=== PATIENT | female | born 1995 | race Caucasian/White ===

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

== ENCOUNTER 2017-04-14 20:50 | Emergency (ER) | payer SELFPAY ==
[~2017-04-14] VITALS: Ht 162.6 cm; Wt 71.8 kg
[~2017-04-14 20:50] MED LIST changes: +KEFLEX500 M1 PO; +PYRIDIUM200 MG PO
[2017-04-14 22:08] LABS: URINE BILIRUBIN - DIPSTICK NEGATIVE (NEGATIVE); URINE BLOOD DIPSTICK TRACE-INTACT (NEGATIVE); URINE COLOR YELLOW; URINE GLUCOSE - DIPSTICK NEGATIVE (NEGATIVE); URINE KETONE NEGATIVE (NEGATIVE); URINE NITRITE - DIPSTICK NEGATIVE (Negative); URINE PROTEIN - DIPSTICK NEGATIVE (NEG-TRACE); URINE UROBILINOGEN - DIPSTICK 0.2 E.U./dL (0.2)
[2017-04-14 22:09] LABS: HEMATOCRIT 33.3 % (37.0-47.0); IMMATURE GRANULOCYTES 0.5 % (0.0-1.0); MEAN CELL VOLUME 73.8 fL CALC (80.0-100.0); MEAN CORPUSCULAR HGB 22.2 pG CALC (26.0-32.0); NEUT# 6.2 thou/uL (2.00-7.15); RED BLOOD COUNT 4.51 mill/uL (4.20-5.60); RED CELL DISTRI WIDTH 16.4 % (11.5-15.5)
[2017-04-14 22:10] LABS: URINE CLARITY HAZY; URINE LEUK ESTERASE SMALL (NEGATIVE)
[2017-04-14 22:11] LABS: BARBITURATES NEGATIVE (NEGATIVE); COCAINE NEGATIVE (NEGATIVE); METHADONE NEGATIVE (NEGATIVE); OXCYCODONE NEGATIVE (NEGATIVE); TETRAHYDROCANNABIONOL NEGATIVE (NEGATIVE); TRICYLIC ANTIDEPRESSANTS NEGATIVE (NEGATIVE)
[2017-04-14 22:16] LABS: URINE RBC 0-2 RBC/hpf (0-5); URINE SQUAMOUS EPITHELIAL CELL MODERATE EPI/hpf (0-FEW)
[2017-04-14 22:21] LABS: ALBUMIN 4.6 g/dL (3.2-5.0); ALKALINE PHOSPHATASE 70 u/l (38-126); ANION GAP 17 (6-22 (CALC)); BILIRUBIN, TOTAL 0.4 mg/dL (0.0-1.4); BUN 13 mg/dL (8-21); BUN/CREATININE RATIO 18 (12-20 (CALC)); CALCIUM 9.3 mg/dL (8.4-10.2); CARBON DIOXIDE 25 mmol/l (22-30); CHLORIDE 104 mmol/l (95-108); CREATININE 0.7 mg/dL (0.5-1.0); GFR > 60 ML/MIN (>=60 (CALC)); GFR FOR AFR.AMER. > 60 ML/MIN (>=60 (CALC)); GLUCOSE 84 mg/dL (70-106); POTASSIUM 3.6 mmol/l (3.5-5.1); SGOT/AST 23 u/l (14-36); SGPT/ALT 26 u/l (9-52); SODIUM 142 mmol/l (137-146); TOTAL PROTEIN 7.7 g/dL (6.3-8.2)
[2017-04-14] MEDS ORDERED: NAPROSYN500 MG PO (22:42)
[2017-04-14 23:05] VITALS: BP 123/80
[2017-04-15] MEDS ORDERED: CIPROFLOXACN500 MG PO (01:35)
== END 2017-04-14 23:05 | disposition home or self-care (01) | DRG 313 ==
LOC: ED 20:50
PROVIDERS: Emergency Medicine
DX: R07.89 Other chest pain (principal); N39.0 Urinary tract infection, site not specified; F17.200 Nicotine dependence, unspecified, uncomplicated

== ENCOUNTER 2018-02-16 09:34 | Emergency (ER) | payer SELFPAY ==
[~2018-02-16] VITALS: Ht 162.6 cm; Wt 70.0 kg
[~2018-02-16 09:34] MED LIST changes: +CIPROFLOXACN500 MG PO; +NAPROSYN500 MG PO
[2018-02-16 10:29] LABS: URINE BILIRUBIN - DIPSTICK NEGATIVE (NEGATIVE); URINE BLOOD DIPSTICK SMALL (NEGATIVE); URINE COLOR YELLOW; URINE GLUCOSE - DIPSTICK NEGATIVE (NEGATIVE); URINE KETONE NEGATIVE (NEGATIVE); URINE NITRITE - DIPSTICK NEGATIVE (Negative); URINE PH 5.5 (4.5-8.0); URINE PROTEIN - DIPSTICK NEGATIVE (NEG-TRACE); URINE SPECIFIC GRAVITY >=1.030; URINE UROBILINOGEN - DIPSTICK 0.2 E.U./dL (0.2)
[2018-02-16 10:30] LABS: URINE CLARITY CLOUDY; URINE LEUK ESTERASE MODERATE (NEGATIVE)
[2018-02-16 10:33] LABS: URINE EPITHELIAL CELLS MODERATE EPI/hpf (0-FEW); URINE WBC 20-50 WBC/hpf (0-5)
[2018-02-16 10:34] LABS: URINE BACTERIA MODERATE hpf
[2018-02-16] MEDS ORDERED: CEPHALEXIN500 M1 PO (10:46)
[2018-02-16 12:30] VITALS: BP 120/71
== END 2018-02-16 12:34 | disposition home or self-care (01) | DRG 782 ==
LOC: ED 09:34
PROVIDERS: Family Medicine
DX: O26.851 Spotting complicating pregnancy, first trimester (principal); O99.331 Smoking (tobacco) complicating pregnancy, first trimester; F17.210 Nicotine dependence, cigarettes, uncomplicated; Z3A.00 Weeks of gestation of pregnancy not specified

== ENCOUNTER 2018-03-09 21:32 | Emergency (ER) | payer SELFPAY ==
[~2018-03-09] VITALS: Ht 162.6 cm; Wt 73.8 kg
[~2018-03-09 21:32] MED LIST changes: +CEPHALEXIN500 M1 PO
[2018-03-09 22:20] LABS: HEMATOCRIT 34.9 % (37.0-47.0); HEMOGLOBIN 10.9 g/dl (12.0-16.0); IMMATURE GRANULOCYTES 0.5 % (0.0-5.0); MEAN CORPUSCULAR HGB CONC 31.2 g/L CALC (32.0-36.0); NEUT# 9.01 thou/uL (2.00-7.15); RED BLOOD COUNT 4.36 mill/uL (4.20-5.60); RED CELL DISTRI WIDTH 16.7 % (11.5-15.5)
[2018-03-09 22:25] LABS: URINE BILIRUBIN - DIPSTICK NEGATIVE (NEGATIVE); URINE BLOOD DIPSTICK SMALL (NEGATIVE); URINE COLOR YELLOW; URINE GLUCOSE - DIPSTICK NEGATIVE (NEGATIVE); URINE KETONE NEGATIVE (NEGATIVE); URINE NITRITE - DIPSTICK NEGATIVE (Negative); URINE PROTEIN - DIPSTICK NEGATIVE (NEG-TRACE); URINE SPECIFIC GRAVITY >=1.030
[2018-03-09 22:26] LABS: URINE CLARITY HAZY; URINE LEUK ESTERASE SMALL (NEGATIVE)
[2018-03-09 22:33] LABS: URINE SQUAMOUS EPITHELIAL CELL FEW EPI/hpf (0-FEW)
[2018-03-09 22:38] LABS: ALBUMIN 4.2 g/dL (3.2-5.0); ALKALINE PHOSPHATASE 57 u/l (38-126); ANION GAP 17 (6-22 (CALC)); BILIRUBIN, TOTAL 0.3 mg/dL (0.0-1.4); BUN 9 mg/dL (7-17); BUN/CREATININE RATIO 14 (12-20 (CALC)); CARBON DIOXIDE 22 mmol/l (22-30); CHLORIDE 103 mmol/l (95-108); CREATININE 0.6 mg/dL (0.5-1.0); GFR > 60 ML/MIN (>=60 (CALC)); GFR FOR AFR.AMER. > 60 ML/MIN (>=60 (CALC)); LIPASE 49 u/l (23-300); POTASSIUM 3.6 mmol/l (3.5-5.1); SGOT/AST 14 u/l (14-36); SGPT/ALT 24 u/l (9-52); SODIUM 139 mmol/l (137-146)
[2018-03-09] MEDS ORDERED: MACROBID100 MG PO (22:49)
[2018-03-09] MEDS ORDERED: AMOXICILLIN500 MG PO (22:49)
[2018-03-09 23:15] VITALS: BP 119/67
== END 2018-03-09 23:00 | disposition home or self-care (01) | DRG 781 ==
LOC: ED 21:32
PROVIDERS: Emergency Medicine
DX: O23.41 Unspecified infection of urinary tract in pregnancy, first trimester (principal); O99.331 Smoking (tobacco) complicating pregnancy, first trimester; F17.210 Nicotine dependence, cigarettes, uncomplicated; Z3A.08 8 weeks gestation of pregnancy

== ENCOUNTER 2018-05-16 16:59 | Emergency (ER) | payer OTHER ==
[~2018-05-16] VITALS: Ht 162.6 cm; Wt 81.0 kg
[~2018-05-16 16:59] MED LIST changes: +MACROBID100 MG PO
[2018-05-16 17:13] VITALS: BP 105/65
[2018-05-16] MEDS ORDERED: AMOXICILLIN875 MG PO (17:18)
== END 2018-05-16 17:30 | disposition home or self-care (01) ==
LOC: ED 16:59
DX: O98.512 Other viral diseases complicating pregnancy, second trimester (principal); J02.9 Acute pharyngitis, unspecified; R50.9 Fever, unspecified; R05 Cough; H92.03 Otalgia, bilateral; F17.200 Nicotine dependence, unspecified, uncomplicated

== ENCOUNTER 2019-03-19 17:05 | Emergency (ER) | payer OTHER ==
[~2019-03-19] VITALS: Ht 162.6 cm; Wt 77.3 kg
[~2019-03-19 17:05] MED LIST changes: +AMOXICILLIN875 MG PO
[2019-03-19 17:45] VITALS: BP 114/73
== END 2019-03-19 17:45 | disposition home or self-care (01) ==
LOC: ED 17:05
DX: S16.1XXA Strain of muscle, fascia and tendon at neck level, initial encounter (principal); R51 Headache; K21.9 Gastro-esophageal reflux disease without esophagitis; X50.3XXA Overexertion from repetitive movements, initial encounter; Y93.89 Activity, other specified

== ENCOUNTER 2019-05-20 19:37 | Emergency (ER) | payer OTHER ==
[~2019-05-20] VITALS: Ht 162.6 cm; Wt 75.4 kg
[2019-05-20 20:48] LABS: URINE BILIRUBIN - DIPSTICK NEGATIVE (NEGATIVE); URINE BLOOD DIPSTICK NEGATIVE (NEGATIVE); URINE COLOR YELLOW; URINE GLUCOSE - DIPSTICK NEGATIVE (NEGATIVE); URINE KETONE NEGATIVE (NEGATIVE); URINE LEUK ESTERASE SMALL (Negative); URINE NITRITE - DIPSTICK NEGATIVE (Negative); URINE PROTEIN - DIPSTICK NEGATIVE (NEG-TRACE); URINE SPECIFIC GRAVITY 1.025
[2019-05-20 20:50] LABS: URINE CLARITY CLEAR
[2019-05-20 21:04] LABS: URINE BACTERIA RARE hpf; URINE SQUAMOUS EPITHELIAL CELL MODERATE EPI/hpf (0-FEW)
[2019-05-20] MEDS ORDERED: CIPROFLOXACIN500 M1 PO (21:07)
[2019-05-20] MEDS ORDERED: PYRIDIUM200 MG PO (21:07)
[2019-05-20 21:35] VITALS: BP 120/62
== END 2019-05-20 21:41 | disposition home or self-care (01) ==
LOC: ED 19:37
PROVIDERS: Emergency Medicine
DX: N39.0 Urinary tract infection, site not specified (principal)

== ENCOUNTER 2019-07-23 17:29 | Emergency (ER) | payer OTHER ==
[~2019-07-23] VITALS: Ht 162.6 cm; Wt 72.7 kg
[~2019-07-23 17:29] MED LIST changes: +CIPROFLOXACIN500 M1 PO
[2019-07-23 18:40] VITALS: BP 119/71
== END 2019-07-23 18:40 | disposition home or self-care (01) ==
LOC: ED 17:29
DX: B34.9 Viral infection, unspecified (principal)

== ENCOUNTER 2019-10-21 | Emergency (ER) | payer OTHER ==
[2019-10-21 19:27] LABS: URINE BILIRUBIN - DIPSTICK NEGATIVE (NEGATIVE); URINE BLOOD DIPSTICK NEGATIVE (NEGATIVE); URINE COLOR YELLOW; URINE GLUCOSE - DIPSTICK NEGATIVE (NEGATIVE); URINE KETONE NEGATIVE (NEGATIVE); URINE LEUK ESTERASE NEGATIVE (NEGATIVE); URINE NITRITE - DIPSTICK NEGATIVE (Negative); URINE PROTEIN - DIPSTICK NEGATIVE (NEG-TRACE); URINE UROBILINOGEN - DIPSTICK 0.2 E.U./dL (0.2)
[2019-10-21 19:54] LABS: HEMATOCRIT 36.7 % (37.0-47.0); HEMOGLOBIN 11.3 g/dl (12.0-16.0); IMMATURE GRANULOCYTES 0.4 % (0.0-5.0); MEAN CELL VOLUME 81.4 fL CALC (80.0-100.0); MEAN CORPUSCULAR HGB 25.1 pG CALC (26.0-32.0); MEAN CORPUSCULAR HGB CONC 30.8 g/L CALC (32.0-36.0); NEUT# 5.12 thou/uL (2.00-7.15); RED BLOOD COUNT 4.51 mill/uL (4.20-5.60); RED CELL DISTRI WIDTH 15.1 % (11.5-15.5)
[2019-10-21 20:20] LABS: ALBUMIN 4.4 g/dL (3.2-5.0); ALKALINE PHOSPHATASE 61 u/l (38-126); ANION GAP 14 (6-22 (CALC)); BILIRUBIN, TOTAL 0.4 mg/dL (0.0-1.4); BUN 12 mg/dL (7-17); BUN/CREATININE RATIO 21 (12-20 (CALC)); CARBON DIOXIDE 24 mmol/l (22-30); CHLORIDE 102 mmol/l (95-108); CREATININE 0.6 mg/dL (0.5-1.0); GFR > 60 ML/MIN (>=60 (CALC)); GFR FOR AFR.AMER. > 60 ML/MIN (>=60 (CALC)); POTASSIUM 3.7 mmol/l (3.5-5.1); SGOT/AST 18 u/l (14-36); SODIUM 136 mmol/l (137-146); TOTAL PROTEIN 7.5 g/dL (6.3-8.2)
[2019-10-21 20:33] LABS: MYOGLOBIN 21 ng/mL (0 - 62)
[2019-10-21] MEDS ORDERED: CEPHALEXIN500 MG PO (20:41)
== END 2019-10-21 20:50 | disposition home or self-care (01) ==
PROVIDERS: Emergency Medicine
DX: O23.20 Infections of urethra in pregnancy, unspecified trimester (principal); Z3A.00 Weeks of gestation of pregnancy not specified; Z87.440 Personal history of urinary (tract) infections

== ENCOUNTER 2020-12-10 08:53 | Emergency (ER) | payer BC, OTHER ==
[~2020-12-10 08:53] MED LIST changes: +CEPHALEXIN500 MG PO
[2020-12-10] MEDS ORDERED: IBUPROFEN600 MG PO (10:00)
[2020-12-10 10:19] VITALS: BP 118/70
== END 2020-12-10 10:19 | disposition home or self-care (01) | DRG 914 ==
LOC: ED 08:53
DX: S67.190A Crushing injury of right index finger, initial encounter (principal); S67.192A Crushing injury of right middle finger, initial encounter; S67.194A Crushing injury of right ring finger, initial encounter; S61.232A Puncture wound without foreign body of right middle finger without damage to nail, initial encounter; S60.021A Contusion of right index finger without damage to nail, initial encounter; S60.041A Contusion of right ring finger without damage to nail, initial encounter; W23.0XXA Caught, crushed, jammed, or pinched between moving objects, initial encounter

== ENCOUNTER 2021-01-07 20:18 | Emergency (ER) | payer BC, OTHER ==
[~2021-01-07] VITALS: Ht 162.6 cm; Wt 87.7 kg
[~2021-01-07 20:18] MED LIST changes: +IBUPROFEN600 MG PO
[2021-01-07 22:30] VITALS: BP 117/84
[2021-01-07] MEDS ORDERED: AMOXICILLIN875 MG PO (22:38)
== END 2021-01-07 22:50 | disposition home or self-care (01) | DRG 153 ==
LOC: ED 20:18
DX: J02.9 Acute pharyngitis, unspecified (principal); R05 Cough; Z20.818 Contact with and (suspected) exposure to other bacterial communicable diseases; Z20.822 Contact with and (suspected) exposure to COVID-19

== ENCOUNTER 2021-04-18 18:24 | Emergency (ER) | payer BC, OTHER ==
[~2021-04-18] VITALS: Ht 162.6 cm; Wt 87.8 kg
[2021-04-18 19:38] LABS: URINE BILIRUBIN - DIPSTICK NEGATIVE (NEGATIVE); URINE BLOOD DIPSTICK SMALL (NEGATIVE); URINE COLOR YELLOW; URINE GLUCOSE - DIPSTICK NEGATIVE (NEGATIVE); URINE KETONE NEGATIVE (NEGATIVE); URINE PROTEIN - DIPSTICK NEGATIVE (NEG-TRACE)
[2021-04-18 19:39] LABS: URINE LEUK ESTERASE SMALL (NEGATIVE); URINE NITRITE - DIPSTICK NEGATIVE (Negative)
[2021-04-18 19:45] LABS: URINE BACTERIA FEW hpf; URINE SQUAMOUS EPITHELIAL CELL MANY EPI/hpf (0-FEW)
[2021-04-18] MEDS ORDERED: KEFLEX500 MG PO (19:51)
[2021-04-18 20:25] VITALS: BP 120/70
== END 2021-04-18 20:25 | disposition home or self-care (01) | DRG 833 ==
LOC: ED 18:24
DX: O23.40 Unspecified infection of urinary tract in pregnancy, unspecified trimester (principal); Z3A.00 Weeks of gestation of pregnancy not specified

== ENCOUNTER 2021-04-22 10:38 | Emergency (ER) | payer BC, OTHER ==
[~2021-04-22] VITALS: Ht 162.6 cm; Wt 86.8 kg
[~2021-04-22 10:38] MED LIST changes: +KEFLEX500 MG PO
[2021-04-22 13:15] VITALS: BP 108/61
== END 2021-04-22 13:15 | disposition home or self-care (01) | DRG 833 ==
LOC: ED 10:38
DX: O98.511 Other viral diseases complicating pregnancy, first trimester (principal); B34.9 Viral infection, unspecified; Z3A.11 11 weeks gestation of pregnancy; Z20.822 Contact with and (suspected) exposure to COVID-19

== ENCOUNTER 2021-08-17 20:01 | Emergency (ER) | payer BC, OTHER | END 2021-08-17 21:21 | disposition left against medical advice (07) | DRG 951 | LOC: ED 20:01 → LWOBS 21:21 | DX: Z53.21 Procedure and treatment not carried out due to patient leaving prior to being seen by health care provider (principal) ==

== ENCOUNTER 2021-08-19 12:32 | Emergency (ER) | payer BC, OTHER ==
[~2021-08-19] VITALS: Ht 162.6 cm; Wt 90.9 kg
[2021-08-19 12:35] VITALS: BP 119/70
[2021-08-19] MEDS ORDERED: TAM75CAP PO (14:02)
== END 2021-08-19 14:15 | disposition home or self-care (01) | DRG 833 ==
LOC: ED 12:32
DX: O99.519 Diseases of the respiratory system complicating pregnancy, unspecified trimester (principal); J11.1 Influenza due to unidentified influenza virus with other respiratory manifestations; Z3A.00 Weeks of gestation of pregnancy not specified; Z20.822 Contact with and (suspected) exposure to COVID-19

== ENCOUNTER 2022-01-22 10:55 | Emergency (ER) | payer BC, OTHER ==
[~2022-01-22] VITALS: Ht 162.6 cm; Wt 90.0 kg
[~2022-01-22 10:55] MED LIST changes: +TAM75CAP PO
[2022-01-22 11:37] LABS: HEMATOCRIT 41.1 % (37.0-47.0); HEMOGLOBIN 12.6 g/dl (12.0-16.0); IMMATURE GRANULOCYTES 0.6 % (0.0-5.0); MEAN CELL VOLUME 87.1 fL CALC (80.0-100.0); MEAN CORPUSCULAR HGB 26.7 pG CALC (26.0-32.0); MEAN CORPUSCULAR HGB CONC 30.7 g/dL CAL (32.0-36.0); NEUT# 5.15 thou/uL (2.00-7.15); RED BLOOD COUNT 4.72 mill/uL (4.20-5.60); RED CELL DISTRI WIDTH 16.2 % (11.5-15.5)
[2022-01-22 12:02] LABS: ACT PARTIAL THROMBO TIME 27.6 SECONDS (20.0-32.5); INTERNATIONAL NORMALIZED RATIO 0.9 RATIO (0.7-1.3); PROTHROMBIN TIME 9.9 SECONDS (9.0-12.5)
[2022-01-22 12:09] LABS: ALBUMIN 4.6 g/dL (3.2-5.0); ANION GAP 13 (6-22 (CALC)); BILIRUBIN, TOTAL 0.4 mg/dL (0.0-1.4); BUN 15 mg/dL (7-17); BUN/CREATININE RATIO 18 (12-20 (CALC)); CARBON DIOXIDE 28 mmol/l (22-30); CHLORIDE 103 mmol/l (95-108); CREATININE 0.9 mg/dL (0.5-1.0); D-DIMER < 0.17 mg/L (0.19-0.60); GFR FOR AFR.AMER. > 60 ML/MIN (>=60 (CALC)); GFR OTHER RACES > 60 ML/MIN (>=60 (CALC)); LIPASE 52 u/l (23-300); POTASSIUM 3.8 mmol/l (3.5-5.1); SGOT/AST 25 u/l (14-36); SODIUM 140 mmol/l (137-146); TOTAL PROTEIN 8.1 g/dL (6.3-8.2)
[2022-01-22 12:16] LABS: ALKALINE PHOSPHATASE 93 u/l (38-126)
[2022-01-22 13:38] VITALS: BP 128/86
== END 2022-01-22 13:39 | disposition home or self-care (01) | DRG 310 ==
LOC: ED 10:55
DX: R00.2 Palpitations (principal); R07.89 Other chest pain; F41.9 Anxiety disorder, unspecified

== ENCOUNTER 2022-01-26 11:13 | Emergency (ER) | payer BC, OTHER ==
[~2022-01-26] VITALS: Ht 162.6 cm; Wt 89.0 kg
[2022-01-26 11:18] VITALS: BP 111/71
[2022-01-26 11:30] VITALS: BP 113/68
[2022-01-26 12:00] VITALS: BP 118/72
[2022-01-26 12:31] VITALS: BP 118/67
== END 2022-01-26 12:32 | disposition home or self-care (01) | DRG 558 ==
LOC: ED 11:13
DX: M70.21 Olecranon bursitis, right elbow (principal)

== ENCOUNTER 2022-05-23 05:21 | Emergency (ER) | payer BC, OTHER ==
[~2022-05-23] VITALS: Ht 162.6 cm; Wt 95.4 kg
[2022-05-23] VITALS (7 sets, daily range): BP systolic 105–124; BP diastolic 40–83
[2022-05-23] MEDS ORDERED: AMOXICILLIN500 MG PO (06:42)
== END 2022-05-23 07:14 | disposition home or self-care (01) | DRG 153 ==
LOC: ED 05:21
DX: J02.0 Streptococcal pharyngitis (principal); Z20.822 Contact with and (suspected) exposure to COVID-19

== ENCOUNTER 2022-09-08 16:56 | Emergency (ER) | payer BC, OTHER ==
[~2022-09-08] VITALS: Ht 162.6 cm; Wt 90.0 kg
[2022-09-08 19:00] VITALS: BP 124/85
== END 2022-09-08 19:02 | disposition home or self-care (01) | DRG 179 ==
LOC: ED 16:56
DX: U07.1 COVID-19 (principal); R50.9 Fever, unspecified; R05.9 Cough, unspecified; M79.10 Myalgia, unspecified site; J02.9 Acute pharyngitis, unspecified; R11.0 Nausea

== ENCOUNTER → 2022-09-12 | Emergency (ER) | payer BC, OTHER ==
[2022-09-12] VITALS (11 sets, daily range): BP systolic 96–144; BP diastolic 61–88
[~2022-09-12] VITALS: Ht 162.6 cm; Wt 104.5 kg
[2022-09-12 12:33] LABS: BASO% 0.6 % (0-3); EOS% 0.3 % (0-8); HEMATOCRIT 38.6 % (37.0-47.0); HEMOGLOBIN 11.6 g/dl (12.0-16.0); IMMATURE GRANULOCYTES 0.2 % (0.0-5.0); LYMPH% 13.2 % (15-41); MEAN CELL VOLUME 78.3 fL CALC (80.0-100.0); MEAN CORPUSCULAR HGB 23.5 pG CALC (26.0-32.0); MEAN CORPUSCULAR HGB CONC 30.1 g/dL CAL (32.0-36.0); NEUT# 7.4 thou/uL (2.00-7.15); NEUT% 81.7 % (42-76); RED BLOOD COUNT 4.93 mill/uL (4.20-5.60); RED CELL DISTRI WIDTH 16.2 % (11.5-15.5)
[2022-09-12 12:44] LABS: ALBUMIN 4.8 g/dL (3.2-5.0); ALKALINE PHOSPHATASE 86 u/l (38-126); ANION GAP 9 (6-22 (CALC)); BILIRUBIN, TOTAL 0.3 mg/dL (0.02-1.3); BUN 9 mg/dL (7-17); BUN/CREATININE RATIO 12 (12-20 (CALC)); CARBON DIOXIDE 27 mmol/l (22-30); CHLORIDE 106 mmol/l (95-108); CREATININE 0.7 mg/dL (0.5-1.0); GFR FOR AFR.AMER. > 60 ML/MIN (>=60 (CALC)); GFR OTHER RACES > 60 ML/MIN (>=60 (CALC)); LIPASE 43 u/l (23-300); POTASSIUM 3.6 mmol/l (3.5-5.1); SGOT/AST 30 u/l (14-36); SODIUM 138 mmol/l (137-146); TOTAL PROTEIN 8.6 g/dL (6.3-8.2)
== END | disposition home or self-care (01) | DRG 179 ==
LOC: ED 11:43
PROVIDERS: Emergency Medicine
DX: U07.1 COVID-19 (principal); R07.9 Chest pain, unspecified; J02.9 Acute pharyngitis, unspecified; R06.00 Dyspnea, unspecified; F41.9 Anxiety disorder, unspecified

== ENCOUNTER 2022-12-19 07:50 | Emergency (ER) | payer BC, OTHER ==
[~2022-12-19] VITALS: Ht 162.6 cm; Wt 88.5 kg
[2022-12-19 08:03] VITALS: BP 132/88
[2022-12-19 08:43] LABS: URINE BILIRUBIN - DIPSTICK NEGATIVE (NEGATIVE); URINE BLOOD DIPSTICK MODERATE (NEGATIVE); URINE COLOR YELLOW; URINE GLUCOSE - DIPSTICK NEGATIVE (NEGATIVE); URINE KETONE NEGATIVE (NEGATIVE); URINE PROTEIN - DIPSTICK NEGATIVE (NEG-TRACE); URINE SPECIFIC GRAVITY >=1.030; URINE UROBILINOGEN - DIPSTICK 0.2 E.U./dL (0.2)
[2022-12-19 08:45] LABS: URINE LEUK ESTERASE MODERATE (NEGATIVE); URINE NITRITE - DIPSTICK NEGATIVE (Negative)
[2022-12-19 08:53] LABS: URINE SQUAMOUS EPITHELIAL CELL FEW EPI/hpf (0-FEW); URINE WBC 20-50 WBC/hpf (0-5)
[2022-12-19] MEDS ORDERED: BACTRIM DS1 TAB PO (08:56)
[2022-12-19 08:59] VITALS: BP 132/88
== END 2022-12-19 09:09 | disposition home or self-care (01) | DRG 690 ==
LOC: ED 07:50
PROVIDERS: Family Medicine
DX: N39.0 Urinary tract infection, site not specified (principal); T19.2XXA Foreign body in vulva and vagina, initial encounter; X58.XXXA Exposure to other specified factors, initial encounter

== ENCOUNTER 2023-01-13 08:46 | Emergency (ER) | payer BC, OTHER ==
[~2023-01-13] VITALS: Ht 162.6 cm; Wt 90.0 kg
[~2023-01-13 08:46] MED LIST changes: +BACTRIM DS1 TAB PO
[2023-01-13] MEDS ORDERED: CIPROFLOXACN500 MG PO (08:57)
[2023-01-13 09:01] VITALS: BP 117/77
[2023-01-13] MEDS ORDERED: FLEXERIL5 M1 PO (09:15)
[2023-01-13] MEDS ORDERED: IBUPROFEN600 MG PO (09:15)
[2023-01-13] MEDS ORDERED: VOLTAREN1%GEL TOP (09:15)
[2023-01-13 09:24] VITALS: BP 117/77
== END 2023-01-13 09:30 | disposition home or self-care (01) | DRG 552 ==
LOC: ED 08:46
DX: M54.2 Cervicalgia (principal)